=== PATIENT | male | born 1945 | race Caucasian/White ===

== ENCOUNTER 2018-06-09 15:50 | Inpatient (IN) | payer OTHER ==
[2018-06-09 17:31] LABS: Hemoglobin 12.6 g/dL (14.0-18.0); Mean Corpuscular HGB CONC 30.8 g/dL (32.0-36.0); Mean Corpuscular Hemoglobin 30.5 pg (27.0-31.0); Mean Platelet Volume 10.7 fL (7.4-10.4); Platelet Count 82 thou/uL (130-400); RBC Distribution Width 14.8 % (11.5-14.5); Red Blood Cell (RBC) Count 4.13 mill/uL (4.70-6.10); White Blood Cell (WBC) Count 11.6 thou/uL (4.8-10.8)
[2018-06-09 17:42] LABS: ALT (SGPT) 29 U/L (8-55); AST (SGOT) 30 U/L (5-34); Albumin 2.6 g/dL (3.4-4.8); Alkaline Phosphatase 112 U/L (40-150); Anion Gap 15 mmol/L (10-20); BUN (Urea Nitrogen) 92 mg/dL (8.4-25.7); Bilirubin, Total 3.5 mg/dL (0.2-1.2); Calc. Creatinine Clearance 0 mL/min (70-130); Calcium 8.1 mg/dL (7.8-10.44); Carbon Dioxide 22 mmol/L (23-31); Chloride 98 mmol/L (98-107); Estimated GFR-MDRD 15; Glucose 104 mg/dL (83-110); Potassium 4.3 mmol/L (3.5-5.1); Protein, Total 5.6 g/dL (5.8-8.1); Sodium 131 mmol/L (136-145)
[2018-06-09 17:43] LABS: Band 8 % (5-11); Burr Cells SLIGHT = 2-5 cells (100X) (0-1/hpf); Lymphocytes 2 % (21-51); MDiff Complete? YES; Monocytes 1 % (0-10); Neutrophil 89 % (42-75); Ovalocytes SLIGHT = 2-5 cells (100X) (0-1/hpf); PLT Morphology Comment Appears Decreased; Polychromasia SLIGHT = 2-3 cells (100X) (0-2/hpf)
[2018-06-09 17:46] LABS: CKMB 2.1 ng/mL (0-6.6); Troponin I 0.093 ng/mL (< 0.028)
--- NOTE | 2018-06-09 18:20 | RAD ---
CHEST ONE VIEW: Indication: History of cough, chest pain. FINDINGS: There are patchy opacities within the left lower lobe, right upper lobe, and right lower lobe which m ay reflect multifocal pneumonia. There is mild cardiomegaly. No pleural effusion or pneumothorax. No acute osseous abnormality is evident. IMPRESSION: Patchy opacity within both lungs suspicious of pneumonia. Recommend correlation with clinical examina tion. Two view chest radiograph may be helpful for improved characterization. POS: [facility]
[2018-06-09 18:35] LABS: PTT 56.9 SEC (22.9-36.1)
[2018-06-09] MEDS ORDERED: Sodium Chloride 0.9% 100 ML ONE (18:39)
[2018-06-09] MEDS ORDERED: Piperacillin/Tazobactam 4.5 GM VIAL ONE (18:39)
[2018-06-09 18:44] LABS: Prothrombin Time 78.8 SEC (12.0-14.7)
[2018-06-09 18:47] LABS: INR-International Normal Ratio 9.9
[2018-06-09] MEDS ORDERED: Norepinephrine 8 MG/0.9% NS 0 ML ONE (19:45)
[2018-06-09 21:16] LABS: Lactic Acid 3.4 mmol/L (0.5-2.2)
[2018-06-09] MEDS ORDERED: Senokot S 8.6-50 MG TAB PO PRN (22:14)
[2018-06-09] MEDS ORDERED: Ondansetron ODT 4 MG TAB PO PRN (22:14)
[2018-06-09] MEDS ORDERED: Bisacodyl 5 MG TAB PO PRN (22:14)
[2018-06-09] MEDS ORDERED: Acetaminophen 325 MG TAB PO PRN (22:14)
[2018-06-09 22:18] LABS: Troponin I 0.098 ng/mL (< 0.028)
--- NOTE | 2018-06-09 23:35 | RAD ---
AP VIEW CHEST 06/09/18 HISTORY: Chest pain. AP view chest is obtained on 06/09/18. Comparison made to previous exam from earlier in the day on 06/09/18. AP view chest demonstrates EKG leads seen over the chest. There has been placement of a right jugular central line. Distal tip overlying the right atrium. No evidence of right sided pneumothorax seen. Pulmonary vascular congestion seen. Bilateral perihilar air space opacities seen, compatible with pulmonary edema or bilateral perihilar pneumonias. IMPRESSION: Stable AP view chest except for placement of a new right jugular central line. POS: [facility]
--- NOTE | 2018-06-09 23:52 | HP ---
CHIEF COMPLAINT: Cough, chest pain, and generalized weakness. HISTORY OF PRESENT ILLNESS: This is a 72-year-old male with past medical history significant for coronary artery disease, congestive heart failure, atrial fibrillation on Coumadin, stent placements, diabetes mellitus type 2, hypertension, osteoarthritis, presenting with chief complaint of generalized weakness, cough, and chest discomfort. Per patient, he feels weak and is having progressive shortness of breath which has been getting worse. Patient also has subjective fevers, lower abdominal pain, occasional diarrhea, and vomiting. Due to patient's symptoms, he was brought to the ED from [facility] to be evaluated in the hospital. At this time, patient denies chills, headaches, palpitations, chest pain, abdominal pain, nausea, vomiting, diarrhea, dysuria, hematuria, hematochezia, or melena. REVIEW OF SYSTEMS: Positive for shortness of breath and subjective fevers, otherwise, as documented in the HPI. All other systems were reviewed and are negative. PAST MEDICAL HISTORY: Coronary artery disease, status post stents; congestive heart failure; atrial fibrillation; diabetes mellitus, type 2; hypertension; osteoarthritis. FAMILY HISTORY: Reviewed, noncontributory to this visit. SURGICAL HISTORY: Cholecystectomy. PSYCHIATRIC HISTORY: No psych history. SOCIAL HISTORY: He denies alcohol use, denies any illicit drug use and denies any smoking history. CURRENT MEDICATIONS: Patient is on amiodarone 200 mg b.i.d.; atorvastatin 40 mg daily; carvedilol 6.25 mg daily, patient takes 3.125 mg b.i.d. of carvedilol ; clopidogrel 75 mg daily; digoxin 125 mcg daily; furosemide 20 mg b.i.d.; warfarin 5 mg, patient takes 2.5 mg every other day; nitro p.r.n. PHYSICAL EXAMINATION: VITAL SIGNS: Patient's blood pressure is 91/63, pulse of 107, respiratory rate of 22, temperature of 98, O2 sat of 98. GENERAL APPEARANCE: Patient is lying in bed. Patient appears much older than his stated age. Patient has very pleasant, alert, oriented x3, not in acute distress, able to speak in full sentences. HEENT: Normocephalic, atraumatic. Pupils are equally round and reactive to light. Extraocular movements are intact. No scleral icterus. Patient has some ecchymosis noted around his neck. NECK: Trachea is midline. No JVD noted at this time. Mucous membranes are dry. CHEST: Patient has bilateral rales noted at the anterior and posterior lung ly. No wheezes appreciated. CARDIOVASCULAR: Patient is sinus tachycardic. ABDOMEN: Obese, soft, nontender, nondistended, positive bowel sounds in all quadrants. EXTREMITIES: Patient has a bandage in place at the upper extremities at the arm. Patient do have some ecchymosis noted at the forearm and his arms bilaterally. At the lower extremities, patient has 2+ pitting edema tracking all the way to his thighs. Patient do not have good pulses bilaterally at the lower extremity. NEUROLOGIC: Cranial nerves II through XII grossly intact. No neurologic deficits noted at this time. PSYCHIATRIC: Patient is alert, oriented x3, normal affect. LABORATORY DATA: Troponin WBC is 11.6, hemoglobin is 12.6, hematocrit is 40.9, RDW is 14.8, platelet count is 82, neutrophils 89%. PT is 78.8. INR is 9.9, PTT is 56.9. Sodium 131, potassium is 4.3, chloride is 98, carbon dioxide 22, anion gap of 15, BUN is 92, creatinine is 4.04, GFR is 15, glucose 104. Lactic acid is 3.5, total bilirubin 3.5, AST is 30, ALT 29, alkaline phosphatase 112. Troponin 0.09. BNP is 2691.6. IMAGING: Chest x-ray shows patchy opacity with both lungs suspicious of pneumonia. ASSESSMENT AND PLAN: A 72-year-old male with past medical history of congestive heart failure presenting with: 1. Cough, generalized weakness likely due to sepsis secondary to healthcare- associated pneumonia. At this point, we will start patient on azithromycin and Levaquin to cover atypicals as well as Gram-negatives. We will continue patient on antibiotics. We have consulted Pulmonology. We will admit the patient to the ICU at this time due to patient being consistently hypotensive, needing a central line at this time. We will continue to monitor the patient closely. 2. Acute on chronic systolic and diastolic heart failure. Patient does not have an echo on file at this time. We will order an echo. We will follow up on the results and then we will consult Cardiology if needed. At this time, patient is going to be admitted of the ICU to be monitored. We will continue patient on his home medications and we will hold beta blockers due to patient is hemodynamically unstable blood pressure. 3. Acute kidney injury on chronic kidney disease, stage 5. We will consult Nephrology. We will do renal function test. We will follow up on results. We will continue to monitor the patient closely. We will follow up on a.m. CMP. 4. Bilateral lower extremity edema due to acute heart failure at this time. We will hold off diuretics due to patient's blood pressure. We are going to place central line for the patient and we will possibly start Levophed if patient's blood pressure continues to drop. We will monitor the patient closely at this time. 5. Sinus tachycardia due to sepsis. At this time, we are going to monitor patient's heart rate. We will continue patient on gentle hydration. 6. Elevated INR of 9.9. Patient has been transfused 1 unit of FFPs. We will follow up on coags in the morning. We will monitor the patient closely. 7. Lactic acidosis. We will follow up on lactic acid. We will continue to trend patient's labs. We will continue IV antibiotics. We will continue IV fluids. 8. Deep venous thrombosis and gastrointestinal prophylaxis. MTDD
[2018-06-10] MEDS: Sodium Chloride 0.9% 1,000 ML IV SCH ×2 (00:40→20:39)
[2018-06-10] MEDS: Norepinephrine 8 MG/0.9% NS 250 ML IVPB PRN (02:17)
[2018-06-10 04:05] LABS: Legionella Urinary Ag Negative (Negative); Strep pneumo Urine Ag NEGATIVE (NEGATIVE)
[2018-06-10] MEDS: Azithromycin 500 MG in Sodium Chloride 0.9% 250 ML 250 ML IVPB SCH (04:34)
[2018-06-10 05:01] LABS: ALT (SGPT) 27 U/L (8-55); AST (SGOT) 27 U/L (5-34); Albumin 2.6 g/dL (3.4-4.8); Alkaline Phosphatase 107 U/L (40-150); Anion Gap 15 mmol/L (10-20); BUN (Urea Nitrogen) 94 mg/dL (8.4-25.7); BUN/Creatinine Ratio 23.21; Bilirubin, Total 3.6 mg/dL (0.2-1.2); Calc. Creatinine Clearance 19 mL/min (70-130); Calcium 8.2 mg/dL (7.8-10.44); Carbon Dioxide 25 mmol/L (23-31); Chloride 99 mmol/L (98-107); Estimated GFR-MDRD 15; Globulin 2.8 g/dL (2.4-3.5); Glucose 111 mg/dL (83-110); Magnesium 2.2 mg/dL (1.6-2.6); Phosphorus 4.3 mg/dL (2.3-4.7); Potassium 4.2 mmol/L (3.5-5.1); Protein, Total 5.4 g/dL (5.8-8.1); Sodium 135 mmol/L (136-145)
[2018-06-10 05:34] LABS: Band 2 % (5-11); Hemoglobin 11.7 g/dL (14.0-18.0); Hypochromia SLIGHT = 6-15 cells (100X) (0-5/hpf); Lymphocytes 4 % (21-51); MDiff Complete? YES; Mean Corpuscular HGB CONC 30.4 g/dL (32.0-36.0); Mean Corpuscular Volume 98.5 fL (78.0-98.0); Mean Platelet Volume 11.9 fL (7.4-10.4); Monocytes 1 % (0-10); Neutrophil 93 % (42-75); PLT Morphology Comment Appears Decreased; Platelet Count 83 thou/uL (130-400); RBC Distribution Width 14.9 % (11.5-14.5); Red Blood Cell (RBC) Count 3.88 mill/uL (4.70-6.10); White Blood Cell (WBC) Count 11.7 thou/uL (4.8-10.8)
[2018-06-10] MEDS: Famotidine 20 MG TAB PO SCH (07:31)
[2018-06-10] MEDS: Ondansetron PF 4 MG/2 ML Vial IVP PRN ×2 (07:58→21:04)
[2018-06-10] MEDS ORDERED: Famotidine/PF 20 mg/2ml Vial SLOW IVP SCH (09:00)
[2018-06-10] MEDS: Albumin 25% 25 GM/100 ML BOT IVPB SCH ×3 (09:18→23:31)
--- NOTE | 2018-06-10 09:27 | ULT ---
ULTRASOUND RETROPERITONEUM COMPLETE: (RENAL) DATE: 06-10-18 HISTORY: 72-year-old male with renal failure. COMPARISON: None. FINDINGS: There are bilateral pleural effusions. There is a minimal amount of free fluid in the abdominal cavit y. Right kidney measures 8 x 4.5 x 4.5 cm. Left kidney measures 9.5 x 5.5 x 5 cm. There is no hydronephrosis. There is an approximately 3 x 3 x 2.5 cm cyst at the left renal midpole. There is a Knapp catheter in the urinary bladder which is nearly empty. Incidentally, there is a round 2 cm cyst at the inferior pole of the spleen. IMPRESSION: 1. No hydronephrosis. 2. Bilateral pleural effusions. 3. Minimal ascites. 4. A 3 cm left renal cyst. 5. Knapp catheter in the urinary bladder. JESUSITA Faustin POS: [facility]
--- NOTE | 2018-06-10 09:32 | CON ---
DATE OF CONSULTATION: 06/10/2018 HISTORY OF PRESENT ILLNESS: Mr. Ramon is a 72-year-old white male who was admitted for cough with generalized weakness. Initial chest x-ray suggested pneumonia. He is now being empirically treated with IV antibiotics. We are being consulted for his acute kidney injury. REVIEW OF SYSTEMS: Positive for generalized weakness. Positive for pleuritic chest pain and cough. No syncopal episode. Denies any fever or chills, no diarrhea, no constipation, no gross hematuria. No hematochezia, no melena, no abdominal pain. No sore throat, no diplopia. Appetite and energy le vaughn is decreased. MEDICATIONS: Currently on Tylenol 650 mg q.4. p.r.n., azithromycin 250 mg IV q.24 hours, Pepcid 20 mg IV daily, Levaquin 500 mg IV q.48h., Levophed drip, Zofran 4 mg IV q.6 hours p.r.n., normal saline 60 mL per hour. Status post Zosyn. PAST MEDICAL HISTORY: 1. Coronary artery disease. 2. Status post CHF. 3. Atrial fibrillation. 4. Diabetes mellitus type 2. 5. Hypertension. 6. DJD. PAST SURGICAL HISTORY: Status post cholecystectomy. SOCIAL HISTORY: The patient is currently incarcerated. No use of alcohol or IV drug abuse. Current ly no smoking. Sedentary lifestyle. ALLERGIES: Unknown. TRAUMA: None. IMMUNIZATIONS: Unknown. HOSPITALIZATIONS: Please see past medical history. FAMILY HISTORY: Noncontributory. PHYSICAL EXAMINATION: VITAL SIGNS: Blood pressure is 93/67, heart rate 108, respiratory 28, pulse ox 100%. GENERAL: Patient is awake, supine, comfortable, not in distress. SKIN: Adequate turgor. HEENT: He has pinkish conjunctivae, anicteric sclerae. NECK: No neck mass, no carotid bruits, no JVD. CHEST: No deformities. LUNGS: Decreased breath sounds. HEART: Irregularly irregular. No murmur, no gallops or rubs. ABDOMEN: Globular, soft, nontender. No masses. EXTREMITIES: No edema, no deformities. NEUROLOGIC: Awake, oriented to 3 spheres. Moving all extremities. No tremors, no asterixis, no zackery francesco. Chest x-ray of 06/09/2018 showed patchy opacity of the lungs. Renal ultrasound pending. LABORATORY: Base met of 06/10/2018 showed a sodium 135, potassium 4.2, chloride 99, carbon dioxide 2 5, BUN 94, creatinine 4.05, phosphorus 4.3, magnesium 2.2, AST 27, ALT 27, albumin is 2.6. Troponin I 0.098. Urine for Strep pneumonia negative. Urine for legionella negative. INR of 9.9. ASSESSMENT AND PLAN: 1. Atrial fibrillation - currently on anticoagulation. Currently on hold due to the elevated INR of 9.9. 2. Acute kidney injury - ____ possibility of a hemodynamically mediated renal dysfunction versus a s uperimposed acute tubular necrosis. We are awaiting for urinalysis and urine chemistries. We are wa iting for the official reading of his renal ultrasound. For the moment, continue supportive care. C ontinue to optimize hemodynamics - on pressor support to maintain an adequate blood pressure. In add ition, I have started salt poor albumin 25 grams IV q.6. with this patient. There is no indication f or any emergent hemodialysis. Overall I agree with current management.
[2018-06-10 09:48] LABS: Bilirubin Negative (Negative); Blood, Urine Large (Negative); Clarity CLOUDY (Clear); Glucose, Urine (Dipstick) Negative (Negative); Leukocyte Trace (Negative); Nitrite Negative (Negative); Protein, Urine (Dipstick) 30 mg/dL (Neg-Trace); Specific Gravity, Urine 1.011 (1.002-1.036)
[2018-06-10 09:49] LABS: Bacteria/HPF None Seen HPF (None Seen); RBC/HPF GREATER THAN 50-TNTC HPF (0-3); Squamous Epithelial 0-3 HPF (0-3)
[2018-06-10 09:53] LABS: Pathc Cast-AUWi Flag 2.76 (0-2.49)
[2018-06-10 10:08] LABS: Creatinine, Urine 75.62 mg/dL (63-166)
[2018-06-10 10:23] LABS: Other Casts/LPF 0-3 COARSE GRAN LPF (0-3 Hyaline)
[2018-06-10 10:24] LABS: Renal Epithelial 0-3 HPF (0-3); Transitional Epithelial 0-3 HPF (0-3)
[2018-06-10 11:17] LABS: Prothrombin Time 68.8 SEC (12.0-14.7)
[2018-06-10 11:19] LABS: INR-International Normal Ratio 8.3
--- NOTE | 2018-06-10 11:26 | CON ---
DATE OF CONSULTATION: 06/10/2018 SERVICE: Pulmonary Medicine. REASON FOR CONSULTATION: ICU patient. HISTORY OF PRESENT ILLNESS: The patient is a 72-year-old white male with past medical history significant for essentially nothing. For the last 3 weeks, he has had fevers, cough and congestion. The cough has been essentially nonproductive. He was subsequently brought to the Emergency Department and discovered to have pneumonia overnight. His blood pressures were quite low. He was started on Levophed and given 3 liters of fluid. With this resuscitation , overnight, he has made significant improvements in symptoms. Nursing reports no overnight events. Levophed has been weaning off. Otherwise, there has been no interval change in this patient's condition. PAST MEDICAL HISTORY: 1. Coronary artery disease. 2. Atrial fibrillation, paroxysmal. 3. Type 2 diabetes mellitus. 4. Hypertension. 5. Osteoarthritis. 6. Chronic systolic and diastolic heart failure. PAST SURGICAL HISTORY: 1. Cholecystectomy. 2. Percutaneous coronary intervention. FAMILY HISTORY: Noncontributory. SOCIAL HISTORY: Negative for current alcohol, tobacco or illicit drug use. He currently lives within the long-term system under the custody of [facility]. He has no exposure to chemicals, dust or asbestos. ALLERGIES: No known drug allergies. MEDICATIONS: List of his inpatient medications was reviewed. No specific updates were made. REVIEW OF SYSTEMS: General, head, ears, eyes, nose, throat, cardiovascular, respiratory, GI, , musculoskeletal, neurologic and skin is negative except as mentioned in HPI. PHYSICAL EXAMINATION: VITAL SIGNS: Afebrile, pulse 104, blood pressure 101/63, respirations 28, saturation 100% on 2 liters nasal cannula. GENERAL: The patient is awake, alert, no apparent distress. LUNGS: Excellent air entry. Rhonchi are present. Dependent crackles are noted. There is no prolonged expiratory phase or wheezing appreciated. HEART: Tachycardic, regular. ABDOMEN: Soft, nontender, nondistended. Bowel sounds are positive. MUSCULOSKELETAL: No cyanosis or clubbing. There is 2+ edema in the bilateral lower extremities. NEUROLOGIC: Grossly nonfocal. LABORATORY DATA: WBC 11.1, hemoglobin 11.7, platelets 83,000 and roughly stable. Neutrophil count is 93% on top of 2% bands. INR 9.9. Creatinine 4.05 , lactate 3.4 and gently down trending. Liver function studies are essentially unremarkable except for an elevated total bilirubin of 3.6. BNP 2,700, cardiac enzymes are stable at 0.098. TSH falls within the normal limits. Urinalysis is significant for hematuria, but otherwise essentially unremarkable. Strep and Legionella pneumonia antigens are unremarkable. Blood cultures x2 are unremarkable. IMAGING DATA: 1. Chest x-ray demonstrates patchy bilateral infiltrates. There is placement of an IJ without pneumothorax. It terminates in appropriate location. 2. Ultrasound of the kidneys demonstrates no evidence of hydronephrosis. Bladder is decompressed with Knapp in place. ASSESSMENT: 1. Acute hypoxic respiratory failure. 2. Community-acquired pneumonia. 3. Acute on chronic systolic and diastolic heart failure. 4. Septic shock. 5. Chronic liver disease, possible. DISCUSSION AND PLAN: We will continue our empiric antibiotics. We will try to minimize fluids moving forward. He has total body volume up. That being said, it is not time for us to diurese him. This will likely be postponed for 24-48 hours. Pulmonary or Critical Care will continue to follow while he remains in this location. We will wean Levophed through time, trend troponins, and get an echocardiogram to look at left ventricular function. Pulmonary or Critical Care will continue to follow along. 70 minutes have been devoted to this patient in various activities. I personally reviewed all imaging studies and laboratory data noted within this document. For fifty percent of this time, I was interacting with the patient at the bedside or coordinating care with the care team. For the remainder of the time I was immediately available to the patient in the hospital unit. HAL
[2018-06-10] MEDS ORDERED: Phytonadione 10 MG/ML AMP PO SCH (11:30)
[2018-06-10] MEDS: cefTRIAXone\\ROCEPHIN 2 GM in Sodium Chloride 0.9% 100 ML IVPB SCH ×3 (12:24→12:37)
[2018-06-10] MEDS ORDERED: Sodium Chloride 0.9% 1,000 ML IV SCH ×2 (12:45→15:30)
[2018-06-10 14:46] LABS: Lactic Acid 3.9 mmol/L (0.5-2.2)
--- NOTE | 2018-06-10 15:32 | PDOC.PN ---
- Subjective Encounter Start Date: 06/10/18 Encounter Start Time: 12:00 Subjective: pt up in bed appears ill - Objective Resuscitation Status: Resuscitation Status FULL:Full Resuscitation Vital Signs & Weight: Vital Signs (12 hours) Temp Pulse Ox 06/10/18 12:00 98.8 F 06/10/18 08:00 100 06/10/18 07:00 98.2 F 06/10/18 06:56 100 06/10/18 04:00 97.6 F Weight Admit Weight 179 lb 14.355 oz Weight 179 lb 14.355 oz Most Recent Monitor Data Heart Rate from ECG 103 NIBP 88/65 NIBP BP-Mean 72 Respiration from ECG 27 SpO2 100 I&O: 06/09/18 06/10/18 06/11/18 06:59 06:59 06:59 Intake Total 600.5 480 Output Total 265 110 Balance 335.5 370 Result Diagrams: 06/10/18 04:05 06/10/18 04:05 Phys Exam - Physical Examination appears dehydrated Respiratory: no wheezing, no rales, no rhonchi, wheezing present, clear to auscultation bilateral Cardiovascular: RRR, no significant murmur, no rub, gallop, irregular Gastrointestinal: soft mild epigastric pain Musculoskeletal: edema present lower ext Neurological: non-focal, normal sensation, moves all 4 limbs Dx/Plan (1) Septic shock Code(s): A41.9 - SEPSIS, UNSPECIFIED ORGANISM; R65.21 - SEVERE SEPSIS WITH SEPTIC SHOCK Status: Acute (2) Pneumonia Code(s): J18.9 - PNEUMONIA, UNSPECIFIED ORGANISM Status: Acute (3) NOELLE (acute kidney injury) Code(s): N17.9 - ACUTE KIDNEY FAILURE, UNSPECIFIED Status: Acute (4) Thrombocytopenia Code(s): D69.6 - THROMBOCYTOPENIA, UNSPECIFIED Status: Acute (5) Lactic acidosis Code(s): E87.2 - ACIDOSIS Status: Acute - Plan pt appears dehydrated, he has only received 500ml in ER and now is on -: ns 60ml/hr. will order 2L bolus. Pt has no urine output. No hydro -: this could be due to ATN. pt has been nauseated for the past month -: he has not been eating much. pt on ppi -: will continue abx, pt's is on levo still hypotensive. * . pt has lower ext edema could be from nephrotic syndrome. I believe he is clinically dehydrated Review of Systems - Review of Systems Respiratory: negative: Cough, Dry, Shortness of Breath, Hemoptysis, SOB with Excertion, Pleuritic Pain, Sputum, Wheezing Cardiovascular: negative: chest pain, palpitations, orthopnea, paroxysmal nocturnal dyspnea, edema, light headedness, other Gastrointestinal: negative: Nausea, Vomiting, Abdominal Pain, Diarrhea, Constipation, Melena, Hematochezia, Other Genitourinary: negative: Dysuria, Frequency, Incontinence, Hematuria, Retention , Other Musculoskeletal: negative: Neck Pain, Shoulder Pain, Arm Pain, Back Pain, Hand Pain, Leg Pain, Foot Pain, Other - Medications/Allergies Allergies/Adverse Reactions: Allergies Allergy/AdvReac Type Severity Reaction Status Date / Time No Known Allergies Allergy Unverified 06/09/18 22:29 Medications: Current Medications Acetaminophen (Tylenol) 650 mg PO Q4H PRN PRN Reason: Headache/Fever/Mild Pain (1-3) Albumin Human (Albumin 25%) 25 gm IVPB Q6HR [facility] Stop: 06/13/18 06:00 Last Admin: 06/10/18 09:18 Dose: 25 gm Amiodarone HCl (Cordarone) 200 mg PO BID [facility] Bisacodyl (Dulcolax) 10 mg PO DAILYPRN PRN PRN Reason: Constipation Clopidogrel Bisulfate (Plavix) 75 mg PO DAILY [facility] Digoxin (Lanoxin) 0.125 mg PO DAILY [facility] Famotidine (Pepcid) 20 mg PO DAILY [facility] Last Admin: 06/10/18 07:31 Dose: Not Given Sodium Chloride (Normal Saline 0.9%) 1,000 mls @ 60 mls/hr IV .[id number] [facility] Last Admin: 06/10/18 00:40 Dose: 1,000 mls Azithromycin 500 mg/ Sodium (Chloride) 250 mls @ 250 mls/hr IVPB Q24HR [facility] Last Admin: 06/10/18 04:34 Dose: 250 mls Norepinephrine Bitartrate (Levophed) 250 mls @ 0 mls/hr IVPB PRN PRN; Protocol PRN Reason: To maintain MAP > 65 Last Admin: 06/10/18 02:17 Dose: 250 mls Ceftriaxone Sodium 2 gm/ (Sodium Chloride) 100 mls @ 200 mls/hr IVPB 1200 [facility] Last Admin: 06/10/18 12:37 Dose: 100 mls Sodium Chloride (Normal Saline 0.9%) 1,000 mls @ 999 mls/hr IV .Q1H1M ANALI Stop: 06/10/18 16:30 Miscellaneous Medication (Pharmacy To Dose) 1 each IVPB ONE PRN PRN Reason: Pharmacy to dose Stop: 06/10/18 22:47 Ondansetron HCl (Zofran Odt) 4 mg PO Q6H PRN PRN Reason: Nausea/Vomiting Ondansetron HCl (Zofran) 4 mg IVP Q6H PRN PRN Reason: Nausea/Vomiting Last Admin: 06/10/18 07:58 Dose: 4 mg Senna/Docusate Sodium (Senokot S) 2 tab PO BIDPRN PRN PRN Reason: Constipation Sodium Chloride (Flush - Normal Saline) 10 ml IVF Q12HR [facility] Last Admin: 06/10/18 07:32 Dose: 10 ml Sodium Chloride (Flush - Normal Saline) 10 ml IVF PRN PRN PRN Reason: Saline Flush
--- NOTE | 2018-06-10 17:46 | CON ---
DATE OF CONSULTATION: 06/10/2018 REASON FOR CONSULTATION: Heart failure. HISTORY OF PRESENT ILLNESS: Mr. Ramon is a pleasant 72-year-old white gentleman who comes [facility] the [facility] from [facility] for generalized weakness, chest pain, and a cough. He has a history of coronary di sease with stent placed in the past, heart failure, atrial fibrillation on Coumadin. He has not been followed here at all. He had weakness and progressive shortness of breath getting worse in the last few days, abdominal pain, occasional diarrhea and vomiting. He was brought to the ER and was found to be hypotensive and was admitted and placed on Levophed drip and started on some IV fluids for poss ible sepsis. PAST MEDICAL HISTORY: 1. Coronary artery disease as above. 2. Congestive heart failure, unknown which type. 3. Atrial fibrillation. 4. Type 2 diabetes. 5. Hypertension. 6. Osteoarthritis. 7. Chronic anticoagulation with Coumadin. FAMILY HISTORY: Noncontributory. PAST SURGICAL HISTORY: Cholecystectomy. SOCIAL HISTORY: No alcohol, tobacco or drugs. Currently in longterm. OUTPATIENT MEDICATIONS: 1. Amiodarone 200 mg b.i.d. 2. Atorvastatin 40 mg a day. 3. Carvedilol 3.125 mg b.i.d. 4. Clopidogrel 75 mg. 5. Digoxin 125 mcg a day. 6. Furosemide 20 mg b.i.d. 7. Warfarin 5 mg b.i.d., 2.5 every other day. 8. . ALLERGIES: No known drug allergies. REVIEW OF SYSTEMS: A 12-point review of systems was done and is all negative unless stated in the hi story of present illness. PHYSICAL EXAMINATION: VITAL SIGNS: Temperature 97.7, pulse 103/102, respiratory rate 27, blood pressure was 85/54. GENERAL: Awake, alert, oriented x3, in no distress. HEENT: Normocephalic, atraumatic. NECK: Supple. No JVD seen. LUNGS: Have mild crackles at the bases. CARDIOVASCULAR: S1, S2. There is a positive S3, no S4. Grade 2/6 systolic murmur right upper enamor[place] al border. ABDOMEN: Soft. EXTREMITIES: 3+ edema. SKIN: Warm and dry. LABORATORY WORK: CBC with a white count 11.7, hemoglobin 11.7, hematocrit 38, platelet count of 83. Coags with an INR of 9.9 on admission, 8.3 now. Chemistry: Sodium 135, BUN and creatinine are high . Lactic acid is high at 3.9. Troponin is indeterminate range x2 with 0.09 and then 0.09. Normal T SH. Lipase is 205. UA shaka, cloudy with large blood. Urinary strep and pneumo antigens were negative. Chest x-ray shows patchy infiltrates which could be related to either pneumonia versus pulmonary garfield a. ASSESSMENT: 1. Acute on chronic systolic heart failure. 2. Echocardiogram was reviewed, EF is severely reduced at 10%-15%. 3. Chamber dilatation. 4. Supratherapeutic INR. 5. Cardiogenic shock. 6. Inmate status. PLAN: 1. Concern for attempt of hurting himself as he has an INR that was really high, which would suggest he took several Coumadin pills. His blood pressure was really low which could happen if he took sev eral beta blockers or any of his blood pressure medicine large amount. He denies this at this time. this would be unlikely as he does not have access to all his medicines at once. 2. We would agree with continued pressor support. We may need to add inotropic agent as well, but a t this time, will just maintain it for now. He is getting a little bit of fluids as he felt that he might be a little dry on the left side; however, this may tip over fairly quickly. Judicious use of fluids. Thank you for letting us participate in the care of your patient. We will follow.
[2018-06-10] MEDS ORDERED: Vancomycin HCl 750 MG in Sodium Chloride 0.9% 250 ML 250 ML IVPB SCH (21:00)
[2018-06-10] MEDS: Amiodarone 200 MG TAB PO SCH (21:04)
[2018-06-11] MEDS: Norepinephrine 8 MG/0.9% NS 250 ML IVPB PRN ×4 (02:30→18:14)
[2018-06-11] MEDS: Azithromycin 500 MG in Sodium Chloride 0.9% 250 ML 250 ML IVPB SCH (04:08)
[2018-06-11 04:40] VITALS: BMI 24.7
[2018-06-11 04:52] LABS: Digoxin Less than 0.15 ng/mL (0.8-2.0)
[2018-06-11 04:56] LABS: Anion Gap 24 mmol/L (10-20); BUN (Urea Nitrogen) 99 mg/dL (8.4-25.7); Calc. Creatinine Clearance 19 mL/min (70-130); Calcium 8.4 mg/dL (7.8-10.44); Carbon Dioxide 17 mmol/L (23-31); Chloride 101 mmol/L (98-107); Estimated GFR-MDRD 14; Glucose 54 mg/dL (83-110); Magnesium 2.4 mg/dL (1.6-2.6); Phosphorus 5.6 mg/dL (2.3-4.7); Potassium 4.6 mmol/L (3.5-5.1); Sodium 137 mmol/L (136-145)
[2018-06-11 05:13] LABS: Band 13 % (5-11); Hemoglobin 11.2 g/dL (14.0-18.0); Lymphocytes 4 % (21-51); MDiff Complete? YES; Mean Corpuscular HGB CONC 30.4 g/dL (32.0-36.0); Mean Corpuscular Volume 98.8 fL (78.0-98.0); Mean Platelet Volume 11.3 fL (7.4-10.4); Monocytes 4 % (0-10); Neutrophil 79 % (42-75); Nucleated RBC 1 % (0); PLT Morphology Comment Appears Decreased; Platelet Count 80 thou/uL (130-400); RBC Distribution Width 14.9 % (11.5-14.5); Red Blood Cell (RBC) Count 3.71 mill/uL (4.70-6.10); White Blood Cell (WBC) Count 12.7 thou/uL (4.8-10.8)
[2018-06-11] MEDS: Sodium Chloride 0.9% 1,000 ML IV SCH (05:18)
[2018-06-11] MEDS: Albumin 25% 25 GM/100 ML BOT IVPB SCH ×3 (05:19→20:55)
[2018-06-11] MEDS ORDERED: DOBUTamine 500 mg/250 ml 250 ML ONE (06:02)
[2018-06-11] MEDS: DOBUTamine 500 mg/250 ml 500 MG in Premix Bag 1 BAG IVPB SCH (06:05)
[2018-06-11] MEDS ORDERED: Furosemide 20 MG/2 ML VIAL SLOW IVP SCH (07:30)
[2018-06-11] MEDS ORDERED: Digoxin 0.125 MG TAB PO SCH (09:00)
[2018-06-11] MEDS: Clopidogrel Bisulfate 75 MG TAB PO SCH (09:28)
[2018-06-11] MEDS: Famotidine 20 MG TAB PO SCH (09:28)
[2018-06-11] MEDS: Amiodarone 200 MG TAB PO SCH ×2 (09:28→20:55)
[2018-06-11] MEDS ORDERED: Furosemide 100 MG, Admixture Fee 1 EACH in Sodium Chloride 0.9% 90 ML IVPB SCH (09:30)
--- NOTE | 2018-06-11 09:38 | PDOC.CTH ---
Cardiology Progress Note - Subjective He ws started on Dobutamine overnight for hypotension not responding to pressors. He denies any chest pain, tightness, pressure, but admits to slightly worsening SOB. - Objective Vital Signs Temp Pulse 06/11/18 09:27 106 H 06/11/18 05:00 98.0 F 06/11/18 04:00 97.8 F 06/11/18 00:00 97.7 F Admit Weight 179 lb 14.355 oz Weight 186 lb 4.65 oz 06/10/18 06/11/18 06/12/18 06:59 06:59 06:59 Intake Total 600.5 4193.5 Output Total 265 285 Balance 335.5 3908.5 - Physical Examination General/Neuro: alert & oriented x3 Neck: no JVD present Lungs: unlabored respirations, other: (mild bibasilar crackles. ) Heart: RRR Abdomen: NT/ND Extremities: + edema B (2+) - Telemetry Telemetry Rhythm: NSR - Labs Result Diagrams: 06/11/18 04:00 06/11/18 04:00 Troponin/CKMB CK-MB (CK-2) 2.1 ng/mL (0-6.6) 06/09/18 17:08 Troponin I 0.098 ng/mL (< 0.028) H 06/09/18 20:11 - Assessment/Plan 1. Acute on chronic systolic heart failure. 2. Severe dilated CM EF at 10-15% 3. Possible pneumonia 4. Cardiogenic shock. 5. Chronic atrial fibrillation. 6. Chronic anticoagulation with Warfarin, supratherapeutic INR. 7. Acute on chronic renal failure. PLAN: - Continue pressor and innotrope support. - If continues to worsen may need higher level of care and transfer to [place] for Left ventricular assist device. - Will start diuresis with IV lasix. - Prognosis guarded.
--- NOTE | 2018-06-11 09:41 | PRG ---
DATE OF SERVICE: 06/11/2018 SERVICE: Pulmonary Medicine. INTERVAL HISTORY: The patient feels about the same today as did yesterday. There has been no interval change to his condition. He denies any current chest pain, fevers, or chills. He is breathing comfortably. His blood pressures were a little marginal overnight and so he ended up getting put on dobutamine. This firmed up his blood pressures and actually allowed us to come off of the Levophed at touch. Otherwise, there has been no interval change to his condition. His urine output remains deplorable. Nursing reports no other overnight events. PHYSICAL EXAMINATION: VITAL SIGNS: Afebrile, pulse 102, blood pressure 100/77, respirations 24, saturation 95% on room air. GENERAL: The patient is awake and alert, in no apparent distress. LUNGS: Excellent air entry. There is no prolonged expiratory phase or wheezing. Extensive crackles are present. HEART: Normal rate, regular. ABDOMEN: Soft, nontender, nondistended. Bowel sounds are positive. MUSCULOSKELETAL: No cyanosis or clubbing. There is diffuse 1-2+ pitting in the bilateral lower extremities. NEUROLOGIC: Grossly nonfocal. LABORATORY DATA: WBC 12.7, hemoglobin 11.2, platelets 80,000. Band count is increasing to 13%. INR 8.3 and down trending. Glucose 54. Phosphorus 5.6, magnesium 2.4. Ammonia is 40. Creatinine 4.13 and stable, BUN 99. Lipase 205 , TSH 3.3. Digoxin is less than 0.15. Strep and legionella antigens are unremarkable. One of two blood cultures is growing coag negative staph. Influenza A and B is negative. IMAGING: Ultrasound of kidneys demonstrates no evidence of hydronephrosis. There are bilateral pleural effusions noted with some ascites. Knapp catheter has decompressed the urinary bladder. ASSESSMENT: 1. Acute on chronic systolic heart failure (ejection fraction 5%-10%). 2. Acute hypoxic respiratory failure, resolved. 3. Community-acquired pneumonia, unlikely. 4. Cardiogenic shock. 5. Chronic liver disease, suspected. DISCUSSION AND PLAN: If there is an inflammatory profile, he has likely cleared it. As such, we will discontinue our IV fluids and introduce a small dose of Lasix. A very low rate of D5 water will be introduced. Pulmonary and Critical Care will continue to follow along while the patient remains in this location. [facility]
[2018-06-11] MEDS: Dextrose 5% in Water 1,000 ML IV SCH (09:42)
--- NOTE | 2018-06-11 14:36 | PQF ---
CLINICAL DOCUMENTATION IMPROVEMENT CLARIFICATION FORM: ICD-10 Updated PLEASE DO AN ADDENDUM TO THE PROGRESS NOTE WITH ANY DOCUMENTATION UPDATES OR ADDITIONS AND CARRY THROUGH TO DC SUMMARY. THANK YOU. DATE: ATTN: DR. SAMANTHA CURTIS Please exercise your independent, professional judgment in responding to the clarification form. Clinical indicators are provided on the bottom of this form for your review. Please check appropriate box(s): I (concur) with the Wound Care findings as stated below. [ ] Pressure Ulcer: (Stage I: Erythema; Stage II: Partial thickness; Stage III : Full thickness; Stage IV: Necrosis to muscle/bone) [ ] Location: POA: [ ] Yes [ ] No [ ] Unable to determine Stage (I to IV): (Left Right Bilateral N/A ) [ ] Other diagnosis [ ] Unable to determine In addition, please specify: Present on Admission (POA): [ ] Yes [ ] No [ ] Unable to determine For continuity of documentation, please document condition throughout progress notes and discharge summary. Thank You. CLINICAL INDICATORS - SIGNS / SYMPTOMS / LABS WOUND CARE CONSULT DOCUMENTATION 06/11: STAGE III PRESSURE ULCER TO L HIP RISK FACTORS: SEPSIS W/SEPTIC SHOCK DM II TREATMENTS: WOUND CARE CONSULT TURN Q2 HRS DIEUDONNE CHRISTINE THANK YOU! Shakila (This form is maintained as a part of the permanent medical record) 2014 [employer]. All Rights Reserved Shakila Saha, RN, BSN [email or web address] Office: [phone] [facility]PITALAnneliese
--- NOTE | 2018-06-11 15:16 | PDOC.PN ---
- Subjective Encounter Start Date: 06/11/18 Encounter Start Time: 10:00 Subjective: pt up in bed feels better today, able to eat - Objective Resuscitation Status: Resuscitation Status FULL:Full Resuscitation Vital Signs & Weight: Vital Signs (12 hours) Temp Pulse 06/11/18 09:27 106 H 06/11/18 05:00 98.0 F 06/11/18 04:00 97.8 F Weight Admit Weight 179 lb 14.355 oz Weight 186 lb 4.65 oz Most Recent Monitor Data Heart Rate from ECG 107 NIBP 89/60 NIBP BP-Mean 69 Respiration from ECG 24 SpO2 100 I&O: 06/10/18 06/11/18 06/12/18 06:59 06:59 06:59 Intake Total 600.5 4193.5 Output Total 265 285 Balance 335.5 3908.5 Result Diagrams: 06/11/18 04:00 06/11/18 04:00 Additional Labs: Accuchecks 06/11/18 06/11/18 09:44 05:02 POC Glucose 67 L 60 L Phys Exam - Physical Examination Neck: no nodes, no JVD, supple, full ROM Respiratory: no wheezing, no rales, no rhonchi, wheezing present, clear to auscultation bilateral Cardiovascular: RRR, no significant murmur, no rub, gallop, irregular Gastrointestinal: soft, non-tender, no distention, positive bowel sounds Musculoskeletal: edema present Dx/Plan (1) Septic shock Code(s): A41.9 - SEPSIS, UNSPECIFIED ORGANISM; R65.21 - SEVERE SEPSIS WITH SEPTIC SHOCK Status: Acute (2) Pneumonia Code(s): J18.9 - PNEUMONIA, UNSPECIFIED ORGANISM Status: Acute (3) NOELLE (acute kidney injury) Code(s): N17.9 - ACUTE KIDNEY FAILURE, UNSPECIFIED Status: Acute (4) Thrombocytopenia Code(s): D69.6 - THROMBOCYTOPENIA, UNSPECIFIED Status: Acute (5) Lactic acidosis Code(s): E87.2 - ACIDOSIS Status: Acute (6) Cardiogenic shock Code(s): R57.0 - CARDIOGENIC SHOCK Status: Acute - Plan pt's blood pressure still low, was put on dobutamine drip -: His ef is 10-15%, his appetite has improved -: will continue abx for now -: pt's blood sugar was low on dextrose -: pt's blood cx did indicate coag neg stap which most likley a contaminate * . however given his persistent hypotension was given one dose of vanco. Review of Systems - Review of Systems Respiratory: negative: Cough, Dry, Shortness of Breath, Hemoptysis, SOB with Excertion, Pleuritic Pain, Sputum, Wheezing Cardiovascular: negative: chest pain, palpitations, orthopnea, paroxysmal nocturnal dyspnea, edema, light headedness, other Gastrointestinal: negative: Nausea, Vomiting, Abdominal Pain, Diarrhea, Constipation, Melena, Hematochezia, Other Genitourinary: negative: Dysuria, Frequency, Incontinence, Hematuria, Retention , Other - Medications/Allergies Allergies/Adverse Reactions: Allergies Allergy/AdvReac Type Severity Reaction Status Date / Time No Known Allergies Allergy Unverified 06/09/18 22:29 Medications: Current Medications Acetaminophen (Tylenol) 650 mg PO Q4H PRN PRN Reason: Headache/Fever/Mild Pain (1-3) Amiodarone HCl (Cordarone) 200 mg PO BID [facility] Last Admin: 06/11/18 09:28 Dose: 200 mg Bisacodyl (Dulcolax) 10 mg PO DAILYPRN PRN PRN Reason: Constipation Clopidogrel Bisulfate (Plavix) 75 mg PO DAILY [facility] Last Admin: 06/11/18 09:28 Dose: 75 mg Digoxin (Lanoxin) 0.125 mg PO DAILY [facility] Last Admin: 06/11/18 09:27 Dose: 0.125 mg Famotidine (Pepcid) 20 mg PO DAILY [facility] Last Admin: 06/11/18 09:28 Dose: 20 mg Azithromycin 500 mg/ Sodium (Chloride) 250 mls @ 250 mls/hr IVPB Q24HR [facility] Last Admin: 06/11/18 04:08 Dose: 250 mls Norepinephrine Bitartrate (Levophed) 250 mls @ 0 mls/hr IVPB PRN PRN; Protocol PRN Reason: To maintain MAP > 65 Last Admin: 06/11/18 14:45 Dose: 250 mls Ceftriaxone Sodium 2 gm/ (Sodium Chloride) 100 mls @ 200 mls/hr IVPB 1200 [facility] Last Admin: 06/10/18 12:37 Dose: 100 mls Dobutamine HCl/Dextrose 500 mg (/ Device) 250 mls @ 0 mls/hr IVPB INF [facility]; Protocol Last Admin: 06/11/18 06:05 Dose: 250 mls Dextrose/Water (D5w) 1,000 mls @ 25 mls/hr IV .Q24H [facility] Last Admin: 06/11/18 09:42 Dose: 1,000 mls Furosemide 100 mg/Miscellaneous Medication 1 each/ Sodium Chloride 100 mls @ 4.545 mls/hr IVPB INF [facility] Last Admin: 06/11/18 10:18 Dose: 100 mls Ondansetron HCl (Zofran Odt) 4 mg PO Q6H PRN PRN Reason: Nausea/Vomiting Ondansetron HCl (Zofran) 4 mg IVP Q6H PRN PRN Reason: Nausea/Vomiting Last Admin: 06/10/18 21:04 Dose: 4 mg Senna/Docusate Sodium (Senokot S) 2 tab PO BIDPRN PRN PRN Reason: Constipation Sodium Chloride (Flush - Normal Saline) 10 ml IVF Q12HR [facility] Last Admin: 06/11/18 09:28 Dose: 10 ml Sodium Chloride (Flush - Normal Saline) 10 ml IVF PRN PRN PRN Reason: Saline Flush
[2018-06-11] MEDS ORDERED: Furosemide 100 MG in Sodium Chloride 0.9% 90 ML IVPB SCH (16:45)
--- NOTE | 2018-06-11 17:05 | EKG ---
Test Reason : SOB Blood Pressure : / mmHG Vent. Rate : 107 BPM Atrial Rate : 107 BPM P-R Int : 212 ms QRS Dur : 114 ms QT Int : 346 ms P-R-T Axes : 000 -65 036 degrees QTc Int : 461 ms Sinus tachycardia with 1st degree A-V block Left anterior fascicular block Nonspecific ST abnormality Abnormal ECG Confirmed by SANYA ALLISON ([id number]), subeditor TREVOR AKINS ([id number]) on 06/11/2018 5:04:29 PM Referred By: Confirmed By:SANYA ALLISON
[2018-06-11] MEDS: Ondansetron PF 4 MG/2 ML Vial IVP PRN (18:40)
--- NOTE | 2018-06-11 20:33 | PRG ---
DATE OF SERVICE: 06/11/2018 SERVICE: Renal Medicine. SUBJECTIVE: Mr. Ramon is a 72-year-old white male, who was seen by the Renal Service for his acute kidney injury. Initially, he felt that this was a hemodynamically mediated renal dysfunction. Furt her evaluation showed that the patient has significant history of decreased ejection fraction - 5% to 10%. He has been evaluated by Cardiology. He has now been started on IV Lasix drip as well on IV d obutamine - for inotropic support. He is also on Levophed. Renal function remains unimproved. Curr ently, his cardiac status being optimized. He feels a little better. The patient denies any chest pain or any worsening shortness of breath. OBJECTIVE: VITAL SIGNS: Blood pressures ranging from 93/69-108/68 with a heart rate of 108, respiratory rate 22 , pulse ox 100%. GENERAL: Awake, sitting comfortable, not in distress SKIN: Adequate turgor. HEENT: He has pinkish conjunctivae, anicteric sclerae. NECK: No neck mass, no carotid bruit, no JVD. LUNGS: Clear. Decreased breath sounds. HEART: Normal sinus rhythm. No murmur, no gallops, no rubs. ABDOMEN: Globular, soft, nontender, no masses. EXTREMITIES: No edema, no deformities. MEDICATIONS: Medications of 06/11/2018 reviewed. LABORATORY DATA: Laboratories of 06/11/2018, white count 12.7, hemoglobin 11.2. Sodium 137, potassi um 4.6, chloride 101, carbon dioxide 17, BUN 99, creatinine 4.13, phosphorus 5.6, magnesium 2.4, calc ium 8.4. ASSESSMENT AND PLAN: Acute kidney injury - consider the possibility of a hemodynamically mediated re nal dysfunction secondary to his significantly decreased ejection fraction. Currently, cardiac statu s is being optimized. Currently, on inotropics as well as pressor support. I would suggest we jovanni nue the salt poor albumin to enhance the effect of his diuresis. He has been started on IV drip Lasi x. Urine output still much decreased. No indication for any acute dialytic intervention. For the moment, agree with current management. I f renal function further worsens, this patient may be a candidate for dialysis.
[2018-06-11] MEDS ORDERED: Albumin 25% 25 GM/100 ML BOT IVPB SCH (23:59)
[2018-06-12] MEDS: DOBUTamine 500 mg/250 ml 500 MG in Premix Bag 1 BAG IVPB SCH (00:13)
[2018-06-12] MEDS: Albumin 25% 25 GM/100 ML BOT IVPB SCH ×4 (02:01→22:10)
[2018-06-12] MEDS: Azithromycin 500 MG in Sodium Chloride 0.9% 250 ML 250 ML IVPB SCH (03:35)
[2018-06-12] MEDS: Norepinephrine 8 MG/0.9% NS 250 ML IVPB PRN (03:36)
[2018-06-12 05:30] LABS: Anion Gap 18 mmol/L (10-20); BUN (Urea Nitrogen) 103 mg/dL (8.4-25.7); Calc. Creatinine Clearance 19 mL/min (70-130); Calcium 8.2 mg/dL (7.8-10.44); Carbon Dioxide 20 mmol/L (23-31); Chloride 102 mmol/L (98-107); Estimated GFR-MDRD 13; Glucose 150 mg/dL (83-110); Potassium 4.3 mmol/L (3.5-5.1); Sodium 136 mmol/L (136-145)
[2018-06-12] MEDS ORDERED: Albumin 25% 100 ML ONE (05:45)
[2018-06-12] MEDS ORDERED: Sodium Chloride 0.9% 250 ML 250 ML IVPB SCH (06:30)
[2018-06-12 06:35] LABS: Band 7 % (5-11); Hemoglobin 10.2 g/dL (14.0-18.0); Hypochromia SLIGHT = 6-15 cells (100X) (0-5/hpf); Lymphocytes 3 % (21-51); MDiff Complete? YES; Mean Corpuscular HGB CONC 29.7 g/dL (32.0-36.0); Mean Corpuscular Hemoglobin 29.4 pg (27.0-31.0); Mean Corpuscular Volume 98.7 fL (78.0-98.0); Monocytes 1 % (0-10); Neutrophil 89 % (42-75); PLT Morphology Comment Appears Decreased; Platelet Count 67 thou/uL (130-400); RBC Distribution Width 14.9 % (11.5-14.5); Red Blood Cell (RBC) Count 3.48 mill/uL (4.70-6.10); White Blood Cell (WBC) Count 12.6 thou/uL (4.8-10.8)
[2018-06-12] MEDS ORDERED: Norepinephrine 16 MG in Sodium Chloride 0.9% 250 ML 234 ML IVPB PRN (07:21)
[2018-06-12] MEDS: Norepinephrine 16 MG in Sodium Chloride 0.9% 250 ML 234 ML IVPB PRN ×4 (07:58→23:00)
[2018-06-12 08:17] LABS: Actual Bicarbonate (HCO3a) 16.9 mEq/L (22-28); Base Excess (BEa) -12.3 mEq/L (-2.0 to +3.0); CO2 Tension 53.6 mmHg (35.0-45.0); Calcium, Ionized 1.13 mmol/L (1.12-1.30); Carboxyhemoglobin (COHb) 0.9 gm% (0.0-3.0); Hemoglobin (Hb) 11.2 g/dL (14.0-18.0); O2 Tension (PaO2) 62.3 mmHg (> 70.0); Potassium - ABG Lab 4.43 mmol/L (3.70-5.30)
[2018-06-12] MEDS ORDERED: Midazolam HCl 2 mg/2 ml Vial ONE (08:29)
[2018-06-12] MEDS ORDERED: Morphine 4 MG/ML VIAL ONE (08:29)
[2018-06-12] MEDS ORDERED: Ventilator Sedation Protocol 1 EACH FS SCH (08:45)
[2018-06-12 08:52] LABS: Puncture Site LRA; pH, Arterial 7.12 (7.35-7.45)
[2018-06-12] MEDS: Clopidogrel Bisulfate 75 MG TAB PO SCH (09:00)
[2018-06-12] MEDS: Amiodarone 200 MG TAB PO SCH ×3 (09:00→22:50)
[2018-06-12] MEDS: Famotidine 20 MG TAB PO SCH (09:00)
[2018-06-12] MEDS ORDERED: Morphine 2 MG/ML SYRINGE SLOW IVP PRN (09:28)
[2018-06-12] MEDS ORDERED: DISCONTINUE PREVIOUS NARCOTIC PAIN MEDICATIONS AND BENZODIAZEPINES FS SCH (09:28)
[2018-06-12] MEDS ORDERED: fentaNYL Citrate/PF 2,000 MCG in Sodium Chloride 0.9% 60 ML IV SCH (09:28)
[2018-06-12] MEDS ORDERED: Fentanyl BOLUS 250 ML IVPB PRN (09:28)
[2018-06-12] MEDS ORDERED: Propofol 1,000 MG/100 ML VIAL IV PRN (09:28)
[2018-06-12] MEDS ORDERED: Propofol BOLUS 1,000 MG/100 ML VIAL IV PRN (09:28)
[2018-06-12] MEDS ORDERED: Lorazepam 2 MG/ML VIAL SLOW IVP PRN (09:28)
--- NOTE | 2018-06-12 09:35 | RAD ---
RADIOGRAPH CHEST 1 VIEW: Date: 06/12/18 Time: 0742 HOURS HISTORY: 72-year-old male with congestive heart failure. COMPARISON: 06/09/18 at 2315 hours. FINDINGS: Endotracheal tube has been placed with distal tip approximately 6 cm superior to the crissy. Right IJ central line remains with distal tip overlying the lower portions of the right atrium. Cardiomegaly. Interval worsening of bilateral infiltrates, now with dense air space opacities throughout all lung ly on the right, and in the left central mid lung zone, and left lower lung zone. No pneumothorax . Probable bilateral pleural effusions. IMPRESSION: 1. Interval worsening of now severe bilateral alveolar infiltrates. This could be either severe bila teral pneumonia or pulmonary alveolar edema. 2. Bilateral pleural effusions. 3. Status post intubation. JESUSITA [] POS: LONNY
--- NOTE | 2018-06-12 09:55 | PRG ---
DATE OF SERVICE: 06/12/2018 SUBJECTIVE: Mr. Ramon is on the CPAP machine. PHYSICAL EXAMINATION: VITAL SIGNS: His blood pressure is low at 79/50, pulse is 100, it is sinus. LUNGS: Clear. CARDIAC: Tachycardic . I do not hear a murmur, rub or gallop. ABDOMEN: Soft, nontender. EXTREMITIES: There is moderate edema. PERTINENT LABORATORY DATA: The INR yesterday was 8.3. The creatinine today is 4.5. ASSESSMENT: 1. Congestive heart failure, advanced, maybe end-stage. 2. Severe hypotension. 3. Renal failure. 4. History of atrial arrhythmias. PLAN: 1. We will stop digoxin in view of renal failure. 2. Continue on oral amiodarone. Prognosis is guarded in this gentleman. We will also reduce dobuta mine, which probably increased his heart rate with reducing blood pressure. Prognosis remains guarde d to poor.
[2018-06-12 10:54] LABS: Actual Bicarbonate (HCO3a) 13.5 mEq/L (22-28); CO2 Tension 37.3 mmHg (35.0-45.0); Calcium, Ionized 1.13 mmol/L (1.12-1.30); Carboxyhemoglobin (COHb) 0.9 gm% (0.0-3.0); Hemoglobin (Hb) 11.1 g/dL (14.0-18.0); O2 Tension (PaO2) 90.7 mmHg (> 70.0); Potassium - ABG Lab 4.37 mmol/L (3.70-5.30)
[2018-06-12 10:55] LABS: ALV-art Gradient 575.675 (0-20); Puncture Site RRA; pH, Arterial 7.18 (7.35-7.45)
[2018-06-12] MEDS ORDERED: Sodium Bicarb 50 MEQ/50 ML Abboject 8.4% SYRINGE ONE ×2 (11:23→11:26)
[2018-06-12] MEDS: Vasopressin 40 UNIT, Admixture Fee 1 EACH in Sodium Chloride 0.9% 100 ML IV SCH (11:29)
[2018-06-12] MEDS ORDERED: Sodium Bicarb 50 MEQ/50 ML Abboject 8.4% SYRINGE IVP SCH (11:45)
[2018-06-12] MEDS: Cefepime 1 GM in Sodium Chloride 0.9% 100 ML IVPB SCH ×2 (12:00→22:10)
[2018-06-12] MEDS: Dextrose 5% in Water 1,000 ML IV SCH (12:11)
--- NOTE | 2018-06-12 12:47 | PRG ---
DATE OF SERVICE: 06/12/2018 RENAL MEDICINE SUBJECTIVE: Mr. Ramon is a 72-year-old white male, being followed by the Renal Service for his acu te kidney injury. He was noted to have severe cardiomyopathy with an EF of 5%-10%. This morning, he went into acute respiratory distress, hence he was intubated and placed on ventilator support. He c ontinues to be on inotropic support as well as pressor support. He is poorly making any urine. OBJECTIVE: VITAL SIGNS: Blood pressure is 86/56, heart rate 101, pulse ox 94%. GENERAL: Sedated, intubated and on ventilator support. SKIN: Adequate turgor. HEENT: Pinkish conjunctivae, anicteric sclerae. NECK: No neck mass, no carotid bruits, no JVD. CHEST: No deformities. LUNGS: Decreased breath sounds. HEART: Normal sinus rhythm. No murmur, no gallops, no rubs. ABDOMEN: Globular, soft, nontender, no masses. EXTREMITIES: No edema. MEDICATIONS: Medications of 06/12/2018 was reviewed. LABORATORY DATA: Laboratories of 06/12/2018, sodium 136, potassium 4.3, chloride 102, carbon dioxide 20, BUN 103, creatinine 4.5, glucose 150, calcium 8.2. White count 12.6, hemoglobin 10.2. ASSESSMENT AND PLAN: Acute kidney injury -- hemodynamically mediated renal dysfunction. Continued t o worsen due to the poor hemodynamic status with this patient. He is currently being optimized with regard to his cardiac status. I think it is just a matter of time when we may need to do dialytic in tervention. However, I am hesitant to proceed with dialysis due to the low blood pressure. My feeli ng is he may not tolerate it. We can consider pure ultrafiltration if needed. The patient may need to be transferred to another facility for possible LVAD placement. Overall, prognosis remains poor.
--- NOTE | 2018-06-12 12:49 | PRG ---
DATE OF SERVICE: 06/12/2018 SUBJECTIVE: He remains intubated on the vent, on a BiPAP. He is unresponsive. OBJECTIVE: VITAL SIGNS: His blood pressure 86/56. He is on Dobutrex and Levophed drip. His urine output is po or, 2097 in, out. CHEST: Reveals extensive rhonchi and crackles. CARDIAC: S1 and S2. ABDOMEN: Soft. LABORATORY DATA: BUN and creatinine of 103 and 4.50. Creatinine has gone up from 4-4.50. White cou nt is 12,000, H and H 10 and 30, his platelet count is only 67,000. No x-ray has been ordered. Wanted to go right now. IMPRESSION: Respiratory failure, end-stage cardiomyopathy with renal failure shock. PLAN: X-ray blood gas will be reviewed. He is probably going to be intubated. We will discuss with Cardiology ongoing issues and additional medication if any at all. His prognosis is grave. This is a one-half hour critical care time.
--- NOTE | 2018-06-12 14:05 | PDOC.PN ---
- Subjective Encounter Start Date: 06/12/18 Encounter Start Time: 10:00 Subjective: pt intubated this am - Objective Resuscitation Status: Resuscitation Status FULL:Full Resuscitation Vital Signs & Weight: Vital Signs (12 hours) Temp Pulse Resp Pulse Ox 06/12/18 13:43 104 H 06/12/18 10:35 101 H 06/12/18 05:00 96.1 F L 06/12/18 04:00 91 L 06/12/18 02:58 107 H 24 H 94 L Weight Admit Weight 179 lb 14.355 oz Weight 197 lb 12.074 oz Most Recent Monitor Data Heart Rate from ECG 101 NIBP 86/56 NIBP BP-Mean 66 Respiration from ECG 32 SpO2 94 I&O: 06/11/18 06/12/18 06/13/18 06:59 06:59 06:59 Intake Total 4193.5 2097.5 Output Total 285 382 Balance 3908.5 1715.5 Result Diagrams: 06/12/18 04:45 06/12/18 04:45 Additional Labs: Accuchecks 06/11/18 17:16 POC Glucose 109 Phys Exam - Physical Examination Neck: no nodes, no JVD, supple, full ROM mild crackles all over Cardiovascular: RRR, no significant murmur, no rub, gallop, irregular Gastrointestinal: soft, non-tender, no distention, positive bowel sounds Dx/Plan (1) Acute hypoxemic respiratory failure Code(s): J96.01 - ACUTE RESPIRATORY FAILURE WITH HYPOXIA Status: Acute (2) Septic shock Code(s): A41.9 - SEPSIS, UNSPECIFIED ORGANISM; R65.21 - SEVERE SEPSIS WITH SEPTIC SHOCK Status: Acute (3) Pneumonia Code(s): J18.9 - PNEUMONIA, UNSPECIFIED ORGANISM Status: Acute (4) NOELLE (acute kidney injury) Code(s): N17.9 - ACUTE KIDNEY FAILURE, UNSPECIFIED Status: Acute (5) Thrombocytopenia Code(s): D69.6 - THROMBOCYTOPENIA, UNSPECIFIED Status: Acute (6) Lactic acidosis Code(s): E87.2 - ACIDOSIS Status: Acute (7) Cardiogenic shock Code(s): R57.0 - CARDIOGENIC SHOCK Status: Acute - Plan pt was put on bipap last night and was intubated this am -: He is on dobutamine/levo and his blood pressure is still low -: pt has multi organ failure, his urine output is minimal -: will try to get family member to help making decisions * . Review of Systems - Review of Systems Other: unable to obtain - Medications/Allergies Allergies/Adverse Reactions: Allergies Allergy/AdvReac Type Severity Reaction Status Date / Time No Known Allergies Allergy Unverified 06/09/18 22:29 Medications: Current Medications Acetaminophen (Tylenol) 650 mg PO Q4H PRN PRN Reason: Headache/Fever/Mild Pain (1-3) Albumin Human (Albumin 25%) 25 gm IVPB 0200,0800,1400,2000 [facility] Stop: 06/13/18 20:01 Last Admin: 06/12/18 13:40 Dose: 25 gm Albuterol/Ipratropium (Duoneb) 3 ml NEB [id number] [facility] Last Admin: 06/12/18 13:42 Dose: 3 ml Amiodarone HCl (Cordarone) 200 mg PO BID [facility] Last Admin: 06/12/18 09:00 Dose: Not Given Bisacodyl (Dulcolax) 10 mg PO DAILYPRN PRN PRN Reason: Constipation Clopidogrel Bisulfate (Plavix) 75 mg PO DAILY [facility] Last Admin: 06/12/18 09:00 Dose: Not Given Famotidine (Pepcid) 20 mg PO DAILY [facility] Last Admin: 06/12/18 09:00 Dose: Not Given Dobutamine HCl/Dextrose 500 mg (/ Device) 250 mls @ 0 mls/hr IVPB INF [facility]; Protocol Last Admin: 06/12/18 00:13 Dose: 250 mls Dextrose/Water (D5w) 1,000 mls @ 25 mls/hr IV .Q24H [facility] Last Admin: 06/12/18 12:11 Dose: 1,000 mls Norepinephrine Bitartrate 16 (mg/ Sodium Chloride) 250 mls @ 0 mls/hr IVPB PRN PRN; Protocol PRN Reason: MAINTAIN MAP>65 Last Admin: 06/12/18 12:52 Dose: 250 mls Cefepime HCl 1 gm/ Sodium (Chloride) 100 mls @ 200 mls/hr IVPB Q12HR [facility] Last Admin: 06/12/18 12:00 Dose: 100 mls Fentanyl Citrate 2,000 mcg/ (Sodium Chloride) 100 mls @ 0 mls/hr IV INF [facility]; Protocol Stop: 07/12/18 09:28 Last Admin: 06/12/18 13:35 Dose: 100 mls Fentanyl Citrate (Fentanyl Bolus) 250 mls @ 0 mls/hr IVPB PRN PRN PRN Reason: Breakthrough pain/agitation Stop: 07/12/18 09:28 Vasopressin 40 unit/Miscellaneous Medication 1 each/ Sodium Chloride 102 mls @ 0 mls/hr IV INF [facility]; Protocol Last Admin: 06/12/18 11:29 Dose: 102 mls Lorazepam (Ativan) 2 mg SLOW IVP Q1H PRN PRN Reason: Breakthrough agitation Stop: 07/12/18 09:28 Morphine Sulfate (Morphine) 2 mg SLOW IVP Q1H PRN PRN Reason: BREAKTHROUGH PAIN/Agitation Stop: 07/12/18 09:28 Last Admin: 06/12/18 11:57 Dose: 2 mg Discontinue Previous Narcotic Pain Medications And Benzodiazepines 1 each FS .ONE [facility] Stop: 07/12/18 09:28 Ondansetron HCl (Zofran Odt) 4 mg PO Q6H PRN PRN Reason: Nausea/Vomiting Ondansetron HCl (Zofran) 4 mg IVP Q6H PRN PRN Reason: Nausea/Vomiting Last Admin: 06/11/18 18:40 Dose: 4 mg Propofol (Diprivan) 1,000 mg IV INF PRN; Protocol PRN Reason: TO ACHIEVE GOAL RASS Stop: 07/12/18 09:28 Propofol (Diprivan Bolus) 20 mg IV Q5MIN PRN PRN Reason: BREAKTHROUGH AGITATION Stop: 07/12/18 09:28 Senna/Docusate Sodium (Senokot S) 2 tab PO BIDPRN PRN PRN Reason: Constipation Sodium Chloride (Flush - Normal Saline) 10 ml IVF Q12HR [facility] Last Admin: 06/12/18 08:31 Dose: 10 ml Sodium Chloride (Flush - Normal Saline) 10 ml IVF PRN PRN PRN Reason: Saline Flush
--- NOTE | 2018-06-12 14:14 | PRG ---
DATE OF SERVICE: 06/12/2018 SUBJECTIVE: José Miguel Ramon is a 72-year-old gentleman who was intubated with progressive respirator y failure. He had blood gas done this morning, which shows severe metabolic acidosis. I discussed w ith his sheeter machine operator personalization specialist today. He states there is nothing additional to offer at this time. Th e patient said he wanted everything to be done. He is a prisoner. There are no additional family me mbers present at the bedside or available as per the care home guards. A bite block was placed and a 7. 5 endotracheal tube was placed above the bronchoscope and passed easily above the vocal cords sitting above the crissy. He was bagged several times. Frothy secretions were removed. Adaptor was placed in both the bronchoscopes. Bronchoscope was repassed again and both lungs were lavaged with normal saline until clear. There were frothy bloody secretions aspirated. Right lung, upper, middle and lo wer lobe, no endobronchial disease was seen. Left lung, upper and middle lobe, once again, no endobr onchial disease was seen, just frothy secretions. Washings sent for Gram stain and C and S. The pat ient tolerated the procedure. This is a procedure intubation, bronchoscopy and lavage, exclusive of the critical care time. He is now connected to volume cycle respirator.
[2018-06-13] MEDS: Vasopressin 40 UNIT, Admixture Fee 1 EACH in Sodium Chloride 0.9% 100 ML IV SCH ×2 (01:43→18:33)
[2018-06-13] MEDS: Albumin 25% 25 GM/100 ML BOT IVPB SCH ×4 (02:41→21:01)
[2018-06-13 05:13] LABS: Prothrombin Time 80.7 SEC (12.0-14.7)
[2018-06-13 05:15] LABS: INR-International Normal Ratio 10.2
[2018-06-13 05:21] LABS: Anion Gap 28 mmol/L (10-20); BUN (Urea Nitrogen) 103 mg/dL (8.4-25.7); Calc. Creatinine Clearance 17 mL/min (70-130); Calcium 8.4 mg/dL (7.8-10.44); Carbon Dioxide 12 mmol/L (23-31); Chloride 101 mmol/L (98-107); Estimated GFR-MDRD 11; Glucose 64 mg/dL (83-110); Potassium 5.1 mmol/L (3.5-5.1); Sodium 136 mmol/L (136-145)
[2018-06-13 05:37] LABS: Band 20 % (5-11); Burr Cells MODERATE= 6-15 cells (100X) (0-1/hpf); Hemoglobin 9.8 g/dL (14.0-18.0); Lymphocytes 3 % (21-51); MDiff Complete? YES; Mean Corpuscular HGB CONC 28.9 g/dL (32.0-36.0); Mean Corpuscular Hemoglobin 29.8 pg (27.0-31.0); Mean Platelet Volume 11.7 fL (7.4-10.4); Metamyelocyte 1 % (0-0); Monocytes 1 % (0-10); Neutrophil 75 % (42-75); PLT Morphology Comment Appears Decreased; Platelet Count 50 thou/uL (130-400); RBC Distribution Width 15.3 % (11.5-14.5); Red Blood Cell (RBC) Count 3.29 mill/uL (4.70-6.10); White Blood Cell (WBC) Count 15.3 thou/uL (4.8-10.8)
[2018-06-13] MEDS: Norepinephrine 16 MG in Sodium Chloride 0.9% 250 ML 234 ML IVPB PRN ×3 (05:53→17:06)
[2018-06-13] MEDS ORDERED: Phytonadione 10 MG/ML AMP PO SCH (06:00)
[2018-06-13 06:32] LABS: Actual Bicarbonate (HCO3a) 10.1 mEq/L (22-28); Base Excess (BEa) -21.6 mEq/L (-2.0 to +3.0); CO2 Tension 47.9 mmHg (35.0-45.0); Calcium, Ionized 1.12 mmol/L (1.12-1.30); Carboxyhemoglobin (COHb) 0.8 gm% (0.0-3.0); Hemoglobin (Hb) 10.8 g/dL (14.0-18.0); O2 Tension (PaO2) 102.2 mmHg (> 70.0); Potassium - ABG Lab 5.04 mmol/L (3.70-5.30)
[2018-06-13 06:36] LABS: pH, Arterial 6.94 (7.35-7.45)
[2018-06-13 06:37] LABS: ALV-art Gradient 550.925 (0-20); Puncture Site RRA
[2018-06-13] MEDS ORDERED: Sodium Bicarb 50 MEQ/50 ML Abboject 8.4% SYRINGE IVP SCH (07:00)
[2018-06-13] MEDS: Cefepime 1 GM in Sodium Chloride 0.9% 100 ML IVPB SCH ×2 (08:35→21:01)
[2018-06-13] MEDS: Clopidogrel Bisulfate 75 MG TAB PO SCH (08:36)
[2018-06-13] MEDS: DOBUTamine 500 mg/250 ml 500 MG in Premix Bag 1 BAG IVPB SCH (08:36)
[2018-06-13] MEDS: Amiodarone 200 MG TAB PO SCH ×2 (08:37→22:07)
[2018-06-13] MEDS: Famotidine 20 MG TAB PO SCH (08:37)
--- NOTE | 2018-06-13 08:50 | PRG ---
DATE OF SERVICE: 06/13/2018 SUBJECTIVE: Mr. Ramon remains on extremely high dose pressors. OBJECTIVE: VITAL SIGNS: His blood pressure is 60s systolic despite these high doses of pressors. LUNGS: Clear anteriorly and laterally. He is on the ventilator. ABDOMEN: Soft and nontender. EXTREMITIES: There is severe edema. Extremities are cooler today. IMAGING: Chest x-ray shows severe pulmonary edema. Creatinine is 5.08. ASSESSMENT: Multiorgan failure, likely related to congestive heart failure, looks end stage. PLAN: Continuing supportive care, but it looks increasingly futile. There is no family here to disc uss this, but I am told that the family has been informed the patient appears to be end-stage. For n ow, the patient continues on intravenous pressors.
--- NOTE | 2018-06-13 10:46 | RAD ---
PORTABLE CHEST 1 VIEW: Date: 06/13/18 Time: 0357 hours HISTORY: Respiratory failure. FINDINGS/IMPRESSION: There has been interval placement of a nasogastric tube with tip in the projection of the gastric car mikel since the previous day's exam. Remainder of exam is stable. POS: LONNY
[2018-06-13] MEDS: Dextrose 5% in Water 1,000 ML IV SCH (11:36)
--- NOTE | 2018-06-13 12:54 | PRG ---
DATE OF SERVICE: 06/13/2018 SUBJECTIVE: A 72-year-old gentleman, intubated on the vent, minimally responsive pretty much low dos e sedation as needed. He has had no urine output over the last 24 hours. His blood pressure is 59/4 5. He is on multiple pressors including Levophed and Dobutrex and vasopressin. Apparently, his sist er arrived yesterday; I was unable to contact her. She said she wanted all supportive care. OBJECTIVE: CHEST: Extensive rhonchi and crackles. CARDIAC: Sinus tachycardia. ABDOMEN: Soft. NEURO: Neurologically unresponsive. Pupils are equal. SKIN: He is jaundiced. LABORATORY DATA: White count is 15,000, H and H 9 and 30, his platelet count is only 50,000. His IN R is 10. His pO2 is 102, pCO2 , severe metabolic acidosis with a bicarbonate of 12, BUN is 103, creatinine is 5. X-ray shows diffuse pulmonary infiltrates consistent with fluid overload and conge stive heart failure. IMPRESSION: 1. End-stage cardiomyopathy, multiorgan failure. 2. Renal failure. 3. Liver failure. 4. Ongoing shock with severe acidosis. The patient is not a candidate for any dialysis, not a candidate for any additional input. Discussed with Cardiology and Nephrology at length. Comfort care. If sister arrives, we will discuss with he r . [id number] critical care time.
--- NOTE | 2018-06-13 13:12 | PRG ---
DATE OF SERVICE: 06/13/2018 SERVICE: Renal Medicine. SUBJECTIVE: Mr. Ramno is a 72-year-old white male, who was admitted for shortness of breath. [place], he was seen by Renal Service for his acute kidney injury. He was found to be in severe CHF. EF was noted about 10%. The patient has been started on several medications to improve cardiac outpu t. Inotropic support has been done and is placed on pressor support. Renal function continues to wo rsen. The patient has been persistently hypotensive in the last several days in spite of medications. The patient has been intubated. OBJECTIVE: VITAL SIGNS: Blood pressure is noted at 61/45, heart rate 87, respiratory rate 30, pulse ox 88%. GENERAL EXAM: Patient is sedated and intubated on ventilator support. SKIN: Adequate turgor. HEENT: He has pinkish conjunctivae, anicteric sclerae. NECK: No neck mass, no carotid bruits, no JVD. CHEST: No deformities. LUNGS: Decreased breath sounds. HEART: Normal sinus rhythm. No murmur, no gallops, no rubs. ABDOMEN: Globular, soft, nontender, no masses. EXTREMITIES: No edema, no deformities. Medications of 06/13/2018 were reviewed. LABORATORY DATA: Laboratories of 06/13/2018, white count 15.3, hemoglobin 9.8. Sodium 136, potassiu m 5.1, chloride 101, carbon dioxide 12, BUN 103, creatinine 5.08, GFR 11 mL per minute. Calcium 8.4. ASSESSMENT AND PLAN: 1. Acute kidney injury - most likely hemodynamically-mediated renal dysfunction due to the severely depressed cardiac output and low blood pressure. This patient is not a candidate for dialysis due to his severely depressed cardiac output as well as severe hypotension. Consider hospice care with thi s patient. 2. Congestive heart failure/hypotension, currently on inotropic support and pressor support. In spi te of these said maneuvers, the patient continues to deteriorate.
--- NOTE | 2018-06-13 13:22 | PDOC.PN ---
- Subjective Encounter Start Date: 06/13/18 Encounter Start Time: 11:15 Subjective: pt intubated - Objective Resuscitation Status: Resuscitation Status FULL:Full Resuscitation Vital Signs & Weight: Vital Signs (12 hours) Temp Pulse Resp Pulse Ox 06/13/18 12:42 83 06/13/18 12:00 97.6 F 06/13/18 11:00 97.4 F L 06/13/18 09:53 88 06/13/18 08:00 96.1 F L 26 H 06/13/18 06:41 91 06/13/18 06:00 26 H 06/13/18 04:00 97.4 F L 26 H 06/13/18 02:23 92 26 H 86 L 06/13/18 02:00 26 H Weight Admit Weight 179 lb 14.355 oz Weight 197 lb 12.074 oz Most Recent Monitor Data Heart Rate from ECG 83 NIBP 56/42 NIBP BP-Mean 46 Respiration from ECG 30 SpO2 86 I&O: 06/12/18 06/13/18 06/14/18 06:59 06:59 06:59 Intake Total 2097.5 2395.7 Output Total 382 735 10 Balance 1715.5 1660.7 -10 Result Diagrams: 06/13/18 04:45 06/13/18 04:45 Phys Exam - Physical Examination Neck: no nodes, no JVD, supple, full ROM mild crackles to bases Cardiovascular: RRR, no significant murmur, no rub, gallop, irregular Gastrointestinal: soft, positive bowel sounds Dx/Plan (1) Acute hypoxemic respiratory failure Code(s): J96.01 - ACUTE RESPIRATORY FAILURE WITH HYPOXIA Status: Acute (2) Septic shock Code(s): A41.9 - SEPSIS, UNSPECIFIED ORGANISM; R65.21 - SEVERE SEPSIS WITH SEPTIC SHOCK Status: Acute (3) Pneumonia Code(s): J18.9 - PNEUMONIA, UNSPECIFIED ORGANISM Status: Acute (4) NOELLE (acute kidney injury) Code(s): N17.9 - ACUTE KIDNEY FAILURE, UNSPECIFIED Status: Acute (5) Thrombocytopenia Code(s): D69.6 - THROMBOCYTOPENIA, UNSPECIFIED Status: Acute (6) Lactic acidosis Code(s): E87.2 - ACIDOSIS Status: Acute (7) Cardiogenic shock Code(s): R57.0 - CARDIOGENIC SHOCK Status: Acute - Plan pt still very ill -: will call family to see if we can make this pt dnr * . Review of Systems - Review of Systems Other: unable to obtain - Medications/Allergies Allergies/Adverse Reactions: Allergies Allergy/AdvReac Type Severity Reaction Status Date / Time No Known Allergies Allergy Unverified 06/09/18 22:29 Medications: Current Medications Acetaminophen (Tylenol) 650 mg PO Q4H PRN PRN Reason: Headache/Fever/Mild Pain (1-3) Albumin Human (Albumin 25%) 25 gm IVPB 0200,0800,1400,2000 ANALI Stop: 06/14/18 10:00 Last Admin: 06/13/18 08:48 Dose: 25 gm Albuterol/Ipratropium (Duoneb) 3 ml NEB [id number] ANALI Last Admin: 06/13/18 09:53 Dose: 3 ml Amiodarone HCl (Cordarone) 200 mg PO BID ANALI Last Admin: 06/13/18 08:37 Dose: 200 mg Bisacodyl (Dulcolax) 10 mg PO DAILYPRN PRN PRN Reason: Constipation Clopidogrel Bisulfate (Plavix) 75 mg PO DAILY [facility] Last Admin: 06/13/18 08:36 Dose: 75 mg Famotidine (Pepcid) 20 mg PO DAILY ANALI Last Admin: 06/13/18 08:37 Dose: 20 mg Dobutamine HCl/Dextrose 500 mg (/ Device) 250 mls @ 0 mls/hr IVPB INF ANALI; Protocol Last Admin: 06/13/18 08:36 Dose: 250 mls Dextrose/Water (D5w) 1,000 mls @ 25 mls/hr IV .Q24H ANALI Last Admin: 06/13/18 11:36 Dose: Not Given Norepinephrine Bitartrate 16 (mg/ Sodium Chloride) 250 mls @ 0 mls/hr IVPB PRN PRN; Protocol PRN Reason: MAINTAIN MAP>65 Last Admin: 06/13/18 11:34 Dose: 250 mls Cefepime HCl 1 gm/ Sodium (Chloride) 100 mls @ 200 mls/hr IVPB Q12HR ANALI Last Admin: 06/13/18 08:35 Dose: 100 mls Fentanyl Citrate 2,000 mcg/ (Sodium Chloride) 100 mls @ 0 mls/hr IV INF ANALI; Protocol Stop: 07/12/18 09:28 Last Admin: 06/12/18 13:35 Dose: 100 mls Fentanyl Citrate (Fentanyl Bolus) 250 mls @ 0 mls/hr IVPB PRN PRN PRN Reason: Breakthrough pain/agitation Stop: 07/12/18 09:28 Vasopressin 40 unit/Miscellaneous Medication 1 each/ Sodium Chloride 102 mls @ 0 mls/hr IV INF ANALI; Protocol Last Admin: 06/13/18 01:43 Dose: 102 mls Lorazepam (Ativan) 2 mg SLOW IVP Q1H PRN PRN Reason: Breakthrough agitation Stop: 07/12/18 09:28 Morphine Sulfate (Morphine) 2 mg SLOW IVP Q1H PRN PRN Reason: BREAKTHROUGH PAIN/Agitation Stop: 07/12/18 09:28 Last Admin: 06/12/18 11:57 Dose: 2 mg Discontinue Previous Narcotic Pain Medications And Benzodiazepines 1 each FS .ONE ANALI Stop: 07/12/18 09:28 Ondansetron HCl (Zofran Odt) 4 mg PO Q6H PRN PRN Reason: Nausea/Vomiting Ondansetron HCl (Zofran) 4 mg IVP Q6H PRN PRN Reason: Nausea/Vomiting Last Admin: 06/11/18 18:40 Dose: 4 mg Propofol (Diprivan) 1,000 mg IV INF PRN; Protocol PRN Reason: TO ACHIEVE GOAL RASS Stop: 07/12/18 09:28 Propofol (Diprivan Bolus) 20 mg IV Q5MIN PRN PRN Reason: BREAKTHROUGH AGITATION Stop: 07/12/18 09:28 Senna/Docusate Sodium (Senokot S) 2 tab PO BIDPRN PRN PRN Reason: Constipation Sodium Chloride (Flush - Normal Saline) 10 ml IVF Q12HR ANALI Last Admin: 06/13/18 08:37 Dose: 10 ml Sodium Chloride (Flush - Normal Saline) 10 ml IVF PRN PRN PRN Reason: Saline Flush
--- NOTE | 2018-06-13 14:09 | PDOC.EVN ---
Event Note - Event Note Event Note: Called the got number for sara sister, . Updated her about pt's medical condition. She did come in to see the patient last night. I did explain to her in details about multiple organ failure and the medications he is on to keep his pressure elevated. Furthermore i also told her that with all the medication his blood pressure is still not optimal due to his low ef. She understood and told me that he was in [place] for a month for his heart. I requested her to come tonight since based on his vitals there is a possibility that he might not make it. I also asked her if we could change his code status to DNR. She wants to talk to his younger brother before she makes that decision. She cannot come in [facility] since she lives 3h away and is dependent on her children to bring her here. He has no and has one child who he has not been in contact with since she was a toddler. Sara tried to amend things with the pt and his lost daughter but the daughter did not want anything to do with her father. called at 1230pm 1700: spoke with Sara again she has discussed his medical condition with her younger brother Jaime and they both have agreed to DNR if he becomes unstable. if he makes it through she will come to visit him tomorrow. will make pt DNR please call sister Sara if his condition changes.
[2018-06-14] MEDS: Albumin 25% 25 GM/100 ML BOT IVPB SCH (03:29)
[2018-06-14 04:48] LABS: Anion Gap 29 mmol/L (10-20); BUN (Urea Nitrogen) 109 mg/dL (8.4-25.7); Calc. Creatinine Clearance 15 mL/min (70-130); Calcium 8.5 mg/dL (7.8-10.44); Carbon Dioxide 11 mmol/L (23-31); Chloride 102 mmol/L (98-107); Estimated GFR-MDRD 10; Potassium 5.5 mmol/L (3.5-5.1); Sodium 136 mmol/L (136-145)
[2018-06-14 04:57] LABS: Glucose 13 mg/dL (83-110)
[2018-06-14] MEDS ORDERED: Dextrose 50% Abboject 50 ML SYRINGE ONE (04:58)
[2018-06-14] MEDS: Norepinephrine 16 MG in Sodium Chloride 0.9% 250 ML 234 ML IVPB PRN (05:06)
[2018-06-14 05:26] LABS: Band 2 % (5-11); Hemoglobin 8.4 g/dL (14.0-18.0); Hypochromia SLIGHT = 6-15 cells (100X) (0-5/hpf); Lymphocytes 3 % (21-51); MDiff Complete? YES; Macrocytosis SLIGHT = 6-15 cells (100X) (0-5/hpf); Mean Corpuscular HGB CONC 29.3 g/dL (32.0-36.0); Mean Corpuscular Hemoglobin 29.8 pg (27.0-31.0); Mean Platelet Volume 12.4 fL (7.4-10.4); Neutrophil 95 % (42-75); Nucleated RBC 1 % (0); PLT Morphology Comment Appears Decreased; Platelet Count 36 thou/uL (130-400); Polychromasia SLIGHT = 2-3 cells (100X) (0-2/hpf); RBC Distribution Width 15.5 % (11.5-14.5); Red Blood Cell (RBC) Count 2.81 mill/uL (4.70-6.10); White Blood Cell (WBC) Count 19.8 thou/uL (4.8-10.8)
[2018-06-14 08:02] VITALS: BP 67/42
--- NOTE | 2018-06-14 08:08 | RAD ---
PORTABLE CHEST ONE VIEW: 06/14/2018 4:45 a.m. HISTORY: Respiratory failure. COMPARISON: Exam from the previous day. FINDINGS: Line and tube placements remain in place. Bilateral infiltrates are again seen with mild interval im provement. No pneumothoraces or large effusions are identified. POS: H
[2018-06-14] MEDS: Famotidine 20 MG TAB PO SCH (09:16)
[2018-06-14] MEDS: Amiodarone 200 MG TAB PO SCH (09:17)
[2018-06-14] MEDS: Clopidogrel Bisulfate 75 MG TAB PO SCH (09:17)
[2018-06-14] MEDS: Cefepime 1 GM in Sodium Chloride 0.9% 100 ML IVPB SCH (09:22)
--- NOTE | 2018-06-14 09:43 | PRG ---
DATE OF SERVICE: 06/14/2018 SERVICE: Renal Medicine. SUBJECTIVE: Mr. Rmaon is a 72-year-old being seen by the Renal Service for his acute kidney injury . He was admitted for severe CHF. His EF is noted at 5%. He is currently on multiple pressor suppo rt and remains severely hypotensive. OBJECTIVE: VITAL SIGNS: Blood pressure is currently at 69/40 with heart rate 78, respiratory rate 22, pulse ox 94%. GENERAL: Unresponsive, sedated, intubated. SKIN: Adequate turgor. HEENT: Pinkish conjunctivae, anicteric sclerae. NECK: No neck mass, no carotid bruits, no JVD. CHEST: No deformities. LUNGS: Decreased breath sounds. HEART: Normal sinus rhythm. No murmur, no gallops, no rubs. ABDOMEN: Globular, soft, nontender, no masses. EXTREMITIES: Positive for edema. MEDICATIONS: Of 06/14/2018 was reviewed. LABORATORY DATA: Of 06/14/2018, white count 19.8, hemoglobin 8.4, sodium 136, potassium 5.5, chlorid e 102, carbon dioxide 11, BUN 109, creatinine 5.55, GFR at 10 mL per minute. ASSESSMENT AND PLAN: Chronic renal failure/acute kidney injury, superimposed acute tubular necrosis. This patient is not a dialysis candidate due to the fact that he is severely hypotensive. I do not think he can tolerate the dialysis. Continue supportive care. The patient most likely will need to be on hospice. Overall, prognosis remains poor.
[2018-06-14 10:47] VITALS: TEMP 98.1
--- NOTE | 2018-06-15 03:31 | DIS ---
DATE OF : 06/14/2018 at 11:23 a.m. DATE OF ADMISSION: 06/09/2018 DISCHARGE DIAGNOSES: 1. Acute hypoxic respiratory failure. 2. Cardiogenic shock. 3. Acute renal failure. 4. Septic shock. 5. Possible pneumonia. 6. Lactic acidosis. HOSPITAL COURSE: The patient is a 72-year-old male, who is an inmate, who initially presented to the hospital with hypotension and sepsis was initially treated with IV antibiotics and was started on Le vophed and admitted to the ICU. Patient's echocardiogram was ordered and Cardiology was consulted. Patient also had elevated creatinine. At this time, Nephrology also was consulted. Patient's echoca rdiogram indicated dilated cardiomyopathy, EF of 10-15%. Patient continued to have hypotension when he was maxed out on Levophed at this time, vasopressin was started also and the patient was put on a dobutamine drip. The patient also was started on Lasix drip. Patient's condition continued to worse n. He went into respiratory failure. At this time, he was intubated. He was maxed out on vasopress in, Levophed, and also dobutamine and at this time, Lasix drip was discontinued. The patient's condi tion; however, continued to worsen. He had no urine output. His creatinine is also started to rise and his urine output worsen. I did speak extensively with the patient's sister, Keyana, and made the patient DNR yesterday. Patient today. I did speak with the family today also, updated them of what had happened.
[2018-06-16 18:10] LABS: Mycoplasma pneumoniae IgG AB 544 U/mL (0-99); Mycoplasma pneumoniae IgM AB Less than 770 U/mL (0-769)
== END 2018-06-14 11:14 | disposition expired | DRG 871 ==
LOC: ERS 15:50 → EEVIPCON 15:50 → CCU 23:22
PROVIDERS: ADMIT Internal Medicine; ATTEND Internal Medicine
PROC: 30233K1 Transfusion of Nonautologous Frozen Plasma into Peripheral Vein, Percutaneous Approach (ICD-10-PCS; principal; 2018-06-09)
PROC: 3E033XZ Introduction of Vasopressor into Peripheral Vein, Percutaneous Approach (ICD-10-PCS; 2018-06-09)
PROC: 5A1945Z Respiratory Ventilation, 24-96 Consecutive Hours (ICD-10-PCS; 2018-06-12)
PROC: 0BH17EZ Insertion of Endotracheal Airway into Trachea, Via Natural or Artificial Opening (ICD-10-PCS; 2018-06-12)
PROC: 0B9M7ZX Drainage of Bilateral Lungs, Via Natural or Artificial Opening, Diagnostic (ICD-10-PCS; 2018-06-12)
DX: A41.9 Sepsis, unspecified organism (principal); J18.9 Pneumonia, unspecified organism; I50.43 Acute on chronic combined systolic (congestive) and diastolic (congestive) heart failure; R65.21 Severe sepsis with septic shock; J96.01 Acute respiratory failure with hypoxia; N17.0 Acute kidney failure with tubular necrosis; I13.2 Hypertensive heart and chronic kidney disease with heart failure and with stage 5 chronic kidney disease, or end stage renal disease; N18.5 Chronic kidney disease, stage 5; E87.2 Acidosis; I42.0 Dilated cardiomyopathy; I25.10 Atherosclerotic heart disease of native coronary artery without angina pectoris; M19.90 Unspecified osteoarthritis, unspecified site; E11.22 Type 2 diabetes mellitus with diabetic chronic kidney disease; D69.6 Thrombocytopenia, unspecified; E86.0 Dehydration; R57.0 Cardiogenic shock; I48.2 Chronic atrial fibrillation; Z66 Do not resuscitate; K72.90 Hepatic failure, unspecified without coma; K76.9 Liver disease, unspecified; Z79.01 Long term (current) use of anticoagulants; Z90.49 Acquired absence of other specified parts of digestive tract; Z95.5 Presence of coronary angioplasty implant and graft
CPT/HCPCS: 36415; 36416; 36430; 36556; 71045; 76770; 80048; 80053; 80069; 80162; 81001; 82140; 82553; 82570; 82805; 83605; 83690; 83735; 83880; 84100; 84300; 84443; 84484; 85025; 85610; 85730; 86850; 86900; 86901; 87040; 87070; 87077; 87149; 87205; 87804; 87899; 93005; 93306; 94002; 94003; 94640; 94660; 96361; 96365; 96366; J0456; J0692; J0696; J1250; J1940; J1956; J2250; J2270; J2405; J2543; J3010; J3370; J3430; J7050; J7620; P9047; P9059; S0028